=== PATIENT | female | born 1980 | race African-American/Black ===

== ENCOUNTER 2018-12-26 02:40 | Inpatient (IN) | payer BC ==
[2018-12-26] MEDS ORDERED: LIDOCAINE HCL 1% PRESERVATIVE FREE - 30ML VIAL ONE (03:05)
[2018-12-26] MEDS: OXYTOCIN 20 UNITS in 0.9% NS 20 UNIT/1,000 ML INFUS.BAG IV SCH ×2 (03:30→08:00)
[2018-12-26] MEDS ORDERED: METHYLERGONOVINE MALEATE 0.2 MG/1 ML AMP IM ONE (03:35)
[2018-12-26] MEDS ORDERED: oxyCODONE HCL 5 MG TABLET PO ONE (04:05)
[2018-12-26] MEDS ORDERED: oxyCODONE HCL 5 MG TABLET ONE (04:07)
[2018-12-26] MEDS: IBUPROFEN 600 MG TABLET (FP) PO PRN ×2 (04:50→12:06)
[2018-12-26] MEDS: ACETAMINOPHEN 325 MG TABLET (FP) PO PRN ×2 (04:50→12:07)
[2018-12-26] MEDS ORDERED: IBUPROFEN 600 MG TABLET (FP) PO ONE (04:51)
[2018-12-26] MEDS ORDERED: ACETAMINOPHEN 325 MG TABLET (FP) ONE (04:52)
[2018-12-26] MEDS ORDERED: BISACODYL 10 MG SUPP.RECT RC PRN (05:03)
[2018-12-26] MEDS ORDERED: WITCH HAZEL 50% (TUCKS) 40 PAD/JAR PAD TP PRN (05:03)
[2018-12-26] MEDS ORDERED: METHYLERGONOVINE MALEATE 0.2 MG/1 ML AMP IM PRN (05:03)
[2018-12-26] MEDS ORDERED: BENZOCAINE 20% 57 GM BOTTLE TP PRN (05:03)
[2018-12-26] MEDS ORDERED: BENZOCAINE 28 GM HEMORRHOIDAL OINTMENT TP PRN (05:03)
[2018-12-26 05:06] VITALS: BMI 50.3
[2018-12-26] MEDS ORDERED: OXYTOCIN 20 UNITS in 0.9% NS 20 UNIT/1,000 ML INFUS.BAG IV ONE (07:46)
--- NOTE | 2018-12-26 08:22 | HP ---
Past Medical History - Primary Care Physician PCP:: Nick Lam - Admission Chief Complaint: 38 weeks, labor , GDM, obesity History of Present Illness: 38 yo f with hx of GDM, diet controlled, AMA, morbid obesity, 38 weeks, care else where admitted in labor, had spontaneous vaginal delivery on arrival History Source: Patient Limitations to Obtaining History: No Limitations - Past Medical History ...: 2 ...Para: 1 ...Term: 1 ...LMP: 03/31/18 ...EDC by Sono: 01/04/19 Additional OB History: hx of GDM, diet controlled Endocrine: Yes: Diabetes Mellitus (diet controlled) - Past Surgical History Hx Myomectomy: No Hx Transabdominal Cerclage: No - Smoking History Smoking history: Never smoked - Alcohol/Substance Use Hx Alcohol Use: No - Social History History of Recent Travel: No Home Medications - Allergies Allergies/Adverse Reactions: Allergies Allergy/AdvReac Type Severity Reaction Status Date / Time No Known Drug Allergies Allergy Verified 12/26/18 05:01 - Home Medications Home Medications: Ambulatory Orders 19 Tablet 1 tab PO DAILY 12/26/18 Review of Systems - Review of Systems Constitutional: reports: No Symptoms Eyes: reports: No Symptoms HENT: reports: No Symptoms Neck: reports: No Symptoms Cardiovascular: reports: No Symptoms Respiratory: reports: No Symptoms Gastrointestinal: reports: No Symptoms Genitourinary: reports: No Symptoms Breasts: reports: No Symptoms Reported Musculoskeletal: reports: No Symptoms Integumentary: reports: No Symptoms Neurological: reports: No Symptoms Endocrine: reports: No Symptoms Hematology/Lymphatic: reports: No Symptoms Psychiatric: reports: No Symptoms Physical Exam - Maternity Vital Signs: Vital Signs Temperature 97.8 F 12/26/18 06:35 Pulse Rate 63 12/26/18 06:35 Respiratory Rate 20 12/26/18 06:35 Blood Pressure 111/54 L 12/26/18 06:35 O2 Sat by Pulse Oximetry (%) 99 12/26/18 04:30 Constitutional: Yes: Well Nourished, No Distress, Calm, Other (morbidly obese) Eyes: Yes: WNL, Conjunctiva Clear, EOM Intact HENT: Yes: WNL, Atraumatic, Normocephalic Neck: Yes: WNL, Supple, Trachea Midline Cardiovascular: Yes: WNL, Regular Rate and Rhythm Breast(s): Yes: WNL - Abdominal Exam/OB Fundal Height: 40 Number of Fetuses: Single Presentation: Vertex Regularity: Regular Monitor Mode: External Heart Rate Location: [facility] Category: I Accelerations: Uniform Decelerations: None - Vaginal Exam/OB Vaginal Bleediing: Bloody Show Speculum Exam: No Dilatation (cm): full Effacement (%): 100 Amniotic Membrane Status: Ruptured Nitrazine Test: Positive Amniotic Fluid: Yes: Meconium Stained Meconium: Light Presentation: Vertex/Position Station: +2 - Physical Exam Musculoskeletal: Yes: WNL Extremities: Yes: WNL Edema: LLE: Trace, RLE: Trace Integumentary: Yes: WNL ...Motor Strength: WNL Psychiatric: Yes: WNL Hemorrhage Risk Assessment - Risk Factors Medium Risk Factors: Yes: None High Risk Factors: Yes: None Risk Score: 1 Risk Level: Medium Risk Problem List - Problems (1) with 38 completed weeks gestation Code(s): Z3A.38 - 38 WEEKS GESTATION OF (2) Labor established Code(s): WST7485 -
[2018-12-26 08:41] LABS: BASO % 0.2 % (0-2.0); EOS % 0.1 % (0-4.5); HEMATOCRIT 30.5 % (32.4-45.2); HEMOGLOBIN 10.7 GM/dL (10.7-15.3); MCH 28.9 pg (25.7-33.7); MCHC 35.1 g/dl (32.0-36.0); MEAN CELL VOLUME 82.2 fl (80-96); MEAN PLT VOLUME 7.5 fl (7.5-11.1); MONO % 3.3 % (3.8-10.2); NEUT % 88.4 % (42.8-82.8); PLATELET COUNT 267 K/MM3 (134-434); RBC 3.71 M/mm3 (3.60-5.2); RDW 15.1 % (11.6-15.6); WHITE BLOOD COUNT 14.9 K/mm3 (4.0-10.0)
[2018-12-26] MEDS ORDERED: TUBERCULIN PPD 5 TU/0.1ML SYRINGE (IN PATIENT USE ONLY) ID ONE (09:00)
[2018-12-26 09:03] LABS: ANION GAP 11 MMOL/L (8-16); BLOOD UREA NITROGEN 10 mg/dL (7-18); CALCIUM 8.4 mg/dL (8.5-10.1); CHLORIDE 104 mmol/L (98-107); CO2 21 mmol/L (21-32); CREATININE 0.8 mg/dL (0.55-1.3); GLUCOSE,RANDOM 122 mg/dL (74-106); POTASSIUM 4.2 mmol/L (3.5-5.1); SODIUM 136 mmol/L (136-145)
--- NOTE | 2018-12-26 09:09 | PN ---
Delivery - Delivery Vaginal Delivery: Spontaneous Type of Anesthesia: Local Episiotomy/Laceration: None (Precipitous delivery. Placenta retained for appr. 45 minutes. Delivered spontaneously, intact. Laceration repaired anatomically, in layers.), 2nd degree EBL (cc): 300 Delivery, Single - Stages of Labor Date 1st Stage Initiatied: 12/26/18 Time 1st Stage Initiated: 00:30 Date 2nd Stage Initiated: 12/26/18 Time 2nd Stage Initiated: 02:40 Date of Delivery: 12/26/18 Time of Delivery: 02:47 Time Placenta Delivered: 03:30 - Condition of Infant Conventional Mortgage Underwriter/Mortgage Servicing Specialist Present: [place]: Willy Atkinson Infant Gender: Female Weight: 6 lb 7 oz Position: OA Total Hours ROM (Hrs/Mins): 55mins - 1 Minute Total Score: 9 5 Minutes Total Score: 9 - [place] Feeding Plan Initial Plan: Elected not to breastfeed exclusively throughout hospitalization
[2018-12-26 09:12] LABS: INR 1.05 (0.83-1.09); PROTHROMBIN TIME (PATIENT) 12.4 SEC (9.7-13.0)
--- NOTE | 2018-12-26 09:13 | PN ---
Progress Note (short form) - Note Progress Note: PP 0. Pt. is doing well. Happy. Family is with her. Stable. Minimal pain. Uterus well contracted. Normal lochia. Good recovery. Will try to breast feed the baby.
--- NOTE | 2018-12-26 11:58 | PN ---
Progress Note (short form) - Note Progress Note: felt dizzy while standing to go to bathroom no active heavy vaginal bleeding no chest pain Last Vital Signs Temp Pulse Resp BP Pulse Ox 98.7 F 61 18 109/58 L 99 12/26/18 07:15 12/26/18 07:15 12/26/18 07:15 12/26/18 07:15 12/26/18 04:30 plan cbc r/o anemia, increase iv fluid revaluate after cbc Problem List - Problems (1) with 38 completed weeks gestation Code(s): Z3A.38 - 38 WEEKS GESTATION OF (2) Labor established Code(s): [id number] -
[2018-12-26 12:24] LABS: BASO % 0.5 % (0-2.0); EOS % 0.2 % (0-4.5); HEMATOCRIT 29.2 % (32.4-45.2); HEMOGLOBIN 10.2 GM/dL (10.7-15.3); LYMPH % 13.7 % (8-40); MCH 28.5 pg (25.7-33.7); MCHC 34.9 g/dl (32.0-36.0); MEAN CELL VOLUME 81.7 fl (80-96); MEAN PLT VOLUME 7.3 fl (7.5-11.1); MONO % 6.8 % (3.8-10.2); NEUT % 78.8 % (42.8-82.8); PLATELET COUNT 273 K/MM3 (134-434); RBC 3.57 M/mm3 (3.60-5.2); RDW 14.9 % (11.6-15.6); WHITE BLOOD COUNT 14.3 K/mm3 (4.0-10.0)
[2018-12-26 12:50] LABS: ANION GAP 9 MMOL/L (8-16); BLOOD UREA NITROGEN 10 mg/dL (7-18); CALCIUM 8.1 mg/dL (8.5-10.1); CHLORIDE 106 mmol/L (98-107); CO2 23 mmol/L (21-32); CREATININE 0.7 mg/dL (0.55-1.3); GLUCOSE,RANDOM 94 mg/dL (74-106); POTASSIUM 4.3 mmol/L (3.5-5.1); SODIUM 138 mmol/L (136-145)
[2018-12-26] MEDS ORDERED: OXYTOCIN 20 UNITS in 0.9% NS 20 UNIT/1,000 ML INFUS.BAG IV SCH (13:00)
[2018-12-26] MEDS: SODIUM CHLORIDE 1,000 ML IV SCH (17:00)
[2018-12-27] MEDS ORDERED: SENNOSIDES/DOCUSATE COMBO (SENNA PLUS) TABLET (UD) PO PRN (05:03)
[2018-12-27] MEDS: ACETAMINOPHEN 325 MG TABLET (FP) PO PRN ×2 (07:30→19:08)
[2018-12-27] MEDS: IBUPROFEN 600 MG TABLET (FP) PO PRN ×2 (07:31→19:07)
--- NOTE | 2018-12-27 09:29 | PN ---
Post Progress Note - Subjective Subjective: 38 yo Para 2 status post vaginal delivery, seen and evaluated. Doing well. Post Day: 1 Type of Delivery: Vital Signs: Vital Signs Temperature 98.3 F 12/27/18 08:04 Pulse Rate 83 12/27/18 08:04 Respiratory Rate 20 12/27/18 08:04 Blood Pressure 123/68 12/27/18 08:04 O2 Sat by Pulse Oximetry (%) 99 12/26/18 04:30 Breast Exam: Yes: Soft Uterus: Yes: Fundus Firm Abdomen/GI: Yes: Abdomen soft, Tolerating PO. No: Tender Lochia: Yes: Rubra Lochia, amount: Moderate Extremities: Yes: Calves non-tender Perineum: Yes: Intact Activity: Ambulating - Labs Labs: CBC WBC 14.3 K/mm3 (4.0-10.0) H 12/26/18 12:10 RBC 3.57 M/mm3 (3.60-5.2) L 12/26/18 12:10 Hgb 10.2 GM/dL (10.7-15.3) L 12/26/18 12:10 Hct 29.2 % (32.4-45.2) L 12/26/18 12:10 MCV 81.7 fl (80-96) 12/26/18 12:10 MCH 28.5 pg (25.7-33.7) 12/26/18 12:10 MCHC 34.9 g/dl (32.0-36.0) 12/26/18 12:10 RDW 14.9 % (11.6-15.6) 12/26/18 12:10 Plt Count 273 K/MM3 (134-434) 12/26/18 12:10 MPV 7.3 fl (7.5-11.1) L 12/26/18 12:10 Absolute Neuts (auto) 11.3 K/mm3 (1.5-8.0) H 12/26/18 12:10 Neutrophils % 78.8 % (42.8-82.8) 12/26/18 12:10 Lymphocytes % 13.7 % (8-40) D 12/26/18 12:10 Monocytes % 6.8 % (3.8-10.2) D 12/26/18 12:10 Eosinophils % 0.2 % (0-4.5) D 12/26/18 12:10 Basophils % 0.5 % (0-2.0) 12/26/18 12:10 Nucleated RBC % 0 % (0-0) 12/26/18 12:10 Problem List - Problems (1) Status post normal vaginal delivery Code(s): [id number] - Assessment/Plan Status post vaginal delivery Stable Ambulation Continue routine care
[2018-12-27] MEDS: SODIUM CHLORIDE 1,000 ML IV SCH (19:59)
--- NOTE | 2018-12-27 22:30 | PN ---
Post Progress Note Post Day: 1 Type of Delivery: Vital Signs: Vital Signs Temperature 98.3 F 12/27/18 08:04 Pulse Rate 83 12/27/18 08:04 Respiratory Rate 20 12/27/18 08:04 Blood Pressure 123/68 12/27/18 08:04 O2 Sat by Pulse Oximetry (%) 99 12/26/18 04:30 Breast Exam: Yes: Soft Uterus: Yes: Fundus Firm, Other (myoma noted) Abdomen/GI: Yes: Passing flatus Lochia: Yes: Rubra Lochia, amount: Moderate Extremities: Yes: Calves non-tender Perineum: Yes: Episiotomy Activity: Ambulating (doing well. fibroids. discharge tomorrow.) - Labs Labs: CBC WBC 14.3 K/mm3 (4.0-10.0) H 12/26/18 12:10 RBC 3.57 M/mm3 (3.60-5.2) L 12/26/18 12:10 Hgb 10.2 GM/dL (10.7-15.3) L 12/26/18 12:10 Hct 29.2 % (32.4-45.2) L 12/26/18 12:10 MCV 81.7 fl (80-96) 12/26/18 12:10 MCH 28.5 pg (25.7-33.7) 12/26/18 12:10 MCHC 34.9 g/dl (32.0-36.0) 12/26/18 12:10 RDW 14.9 % (11.6-15.6) 12/26/18 12:10 Plt Count 273 K/MM3 (134-434) 12/26/18 12:10 MPV 7.3 fl (7.5-11.1) L 12/26/18 12:10 Absolute Neuts (auto) 11.3 K/mm3 (1.5-8.0) H 12/26/18 12:10 Neutrophils % 78.8 % (42.8-82.8) 12/26/18 12:10 Lymphocytes % 13.7 % (8-40) D 12/26/18 12:10 Monocytes % 6.8 % (3.8-10.2) D 12/26/18 12:10 Eosinophils % 0.2 % (0-4.5) D 12/26/18 12:10 Basophils % 0.5 % (0-2.0) 12/26/18 12:10 Nucleated RBC % 0 % (0-0) 12/26/18 12:10 Other Findings, Remarks: Patient is doing well. Myomata noted. Discharge tomorrow.
--- NOTE | 2018-12-28 06:43 | PN ---
Post Progress Note Type of Delivery: Vital Signs: Vital Signs Temperature 98.2 F 12/27/18 22:00 Pulse Rate 92 H 12/27/18 22:00 Respiratory Rate 18 12/27/18 22:00 Blood Pressure 122/65 12/27/18 22:00 O2 Sat by Pulse Oximetry (%) 99 12/26/18 04:30 Breast Exam: Yes: Engorged Uterus: Yes: Fundus Firm Abdomen/GI: Yes: Abdomen soft Lochia: Yes: Rubra Lochia, amount: Moderate Extremities: Yes: Calves non-tender Perineum: Yes: Episiotomy (Patient is trying to breast feed. Encouraged.) Activity: Ambulating - Labs Labs: CBC WBC 14.3 K/mm3 (4.0-10.0) H 12/26/18 12:10 RBC 3.57 M/mm3 (3.60-5.2) L 12/26/18 12:10 Hgb 10.2 GM/dL (10.7-15.3) L 12/26/18 12:10 Hct 29.2 % (32.4-45.2) L 12/26/18 12:10 MCV 81.7 fl (80-96) 12/26/18 12:10 MCH 28.5 pg (25.7-33.7) 12/26/18 12:10 MCHC 34.9 g/dl (32.0-36.0) 12/26/18 12:10 RDW 14.9 % (11.6-15.6) 12/26/18 12:10 Plt Count 273 K/MM3 (134-434) 12/26/18 12:10 MPV 7.3 fl (7.5-11.1) L 12/26/18 12:10 Absolute Neuts (auto) 11.3 K/mm3 (1.5-8.0) H 12/26/18 12:10 Neutrophils % 78.8 % (42.8-82.8) 12/26/18 12:10 Lymphocytes % 13.7 % (8-40) D 12/26/18 12:10 Monocytes % 6.8 % (3.8-10.2) D 12/26/18 12:10 Eosinophils % 0.2 % (0-4.5) D 12/26/18 12:10 Basophils % 0.5 % (0-2.0) 12/26/18 12:10 Nucleated RBC % 0 % (0-0) 12/26/18 12:10 Other Findings, Remarks: Recovering well. Ready to go home. F/U in 4 weeks Instructions given. Discharge.
[2018-12-28] MEDS: IBUPROFEN 600 MG TABLET (FP) PO PRN (08:21)
[2018-12-28] MEDS: ACETAMINOPHEN 325 MG TABLET (FP) PO PRN (08:21)
[2018-12-28] MEDS ORDERED: PRENATAL VITAMINS W/ FOLIC ACID TABLET (FP) PO SCH (10:00)
[2018-12-28 14:27] VITALS: BP 106/72; PULSE 76; TEMP 98
== END 2018-12-28 15:05 | disposition home or self-care (01) | DRG 807 ==
LOC: JLDR 02:40 → J3W 06:25
PROVIDERS: ADMIT Obstetrics & Gynecology; ATTEND Obstetrics & Gynecology
PROC: 10E0XZZ Delivery of Products of Conception, External Approach (ICD-10-PCS; principal; 2018-12-26)
DX: O24.420 Gestational diabetes mellitus in childbirth, diet controlled (principal); Z37.0 Single live birth; O99.213 Obesity complicating pregnancy, third trimester; E66.01 Morbid (severe) obesity due to excess calories; Z3A.38 38 weeks gestation of pregnancy
CPT/HCPCS: 36415; 59409; 80048; 82962; 85025; 85610; 85730; 86593; 86850; 86900; 86901; 87389; J7030